=== PATIENT | female | born 1940 | race Caucasian/White ===

== ENCOUNTER 2017-05-03 07:28 | Emergency (ER) | payer MEDICARE, BC ==
[2017-05-03] MEDS ORDERED: Acetaminophen/HYDROcodone 325-5 MG Tab ONE ×2 (08:00→08:46)
[2017-05-03] MEDS ORDERED: Cyclobenzaprine 10 MG Tab ONE (08:00)
[2017-05-03] MEDS ORDERED: methylPREDNISolone 4 MG Tab 21 Tab/Dosepak ONE (08:00)
[2017-05-03 08:06] VITALS: BP 180/80
[2017-05-03] MEDS ORDERED: Ketorolac 60 MG/2 ML SDV ONE (08:17)
[2017-05-03] MEDS ORDERED: predniSONE 20 MG Tab ONE (08:17)
[2017-05-03] MEDS ORDERED: predniSONE 10 MG Tab PO ONE (08:27)
[2017-05-03] MEDS ORDERED: Ketorolac 60 MG/2 ML SDV IM ONE (08:27)
[2017-05-03] MEDS ORDERED: Acetaminophen/HYDROcodone 325-5 MG Tab PO ONE (08:41)
[2017-05-03] MEDS ORDERED: Ondansetron 4 MG Tab.DIS PO ONE (08:42)
[2017-05-03] MEDS ORDERED: Ondansetron 4 MG Tab.DIS ONE (08:45)
--- NOTE | 2017-05-03 09:04 | EDM.PDOC ---
ED HPI GENERAL MEDICAL PROBLEM - General Chief Complaint: General Stated Complaint: PAIN DOWN LEFT LEG Time Seen by Provider: 05/03/17 08:00 Source of Information: Reports: Patient History Limitations: Reports: No Limitations - History of Present Illness Onset: Today, Gradual Duration: Hour(s): (6) Location: Reports: Back, Lower Extremity, Left, Radiates to (Left lower leg from lower back and buttocks area.) Severity: Moderate Improves with: Reports: Medication Worsens with: Reports: Movement Context: Reports: Activity (Increased walking and working with a new puppy.) Treatments METHODS STUDY ANALYST: Reports: Cold Therapy, NSAIDS Left Lower Back Pain Score (Numeric/FACES): 5 - Related Data Allergies Allergy/AdvReac Type Severity Reaction Status Date / Time No Known Allergies Allergy Verified 05/03/17 08:06 Home Meds: Home Meds Benazepril/Hydrochlorothiazide [Lotensin HCT 20-25 MG] 1 tab PO DAILY 09/11/15 [ History] ClonazePAM [KlonoPIN] 1 tab PO ASDIRECTED PRN 09/11/15 [History] Fluticasone Propionate [Flovent] 1 spray INH ASDIRECTED 09/11/15 [History] Mirtazapine 1 tab PO BEDTIME 09/11/15 [History] Venlafaxine HCl [Venlafaxine ER] 3 tab PO DAILY 09/11/15 [History] amLODIPine [Norvasc] 1 tab PO DAILY 09/11/15 [History] atorvaSTATin Calcium [Atorvastatin Calcium] 1 tab PO DAILY 09/11/15 [History] busPIRone [Buspar] 15 mg PO BID 05/03/17 [History] Past Medical History Cardiovascular History: Reports: None Respiratory History: Reports: None Gastrointestinal History: Reports: None Genitourinary History: Reports: None Other OB/BYN History: parity: 3, gravity: 3 Musculoskeletal History: Reports: Arthritis, Back Pain, Chronic, Neck Pain, Chronic, Osteoarthritis Other Musculoskeletal History: neck discomfort at times in walking Oncologic (Cancer) History: Reports: None - Past Surgical History Other Musculoskeletal Surgeries/Procedures:: Back, Hammer Toe Correction Social & Family History - Tobacco Use Smoking Status *Q: Former Smoker Years of Tobacco use: 20 Packs/Tins Daily: 0.3 - Alcohol Use Days Per Week of Alcohol Use: 3 Number of Drinks Per Day: 2 Total Drinks Per Week: 6 - Recreational Drug Use Recreational Drug Use: No ED ROS GENERAL - Review of Systems Review Of Systems: See Below Constitutional: Reports: No Symptoms HEENT: Reports: No Symptoms Respiratory: Reports: No Symptoms Cardiovascular: Reports: No Symptoms Endocrine: Reports: No Symptoms GI/Abdominal: Reports: No Symptoms : Reports: No Symptoms Musculoskeletal: Reports: Leg Pain Skin: Reports: No Symptoms Neurological: Reports: Other (Sciatic pain down left buttocks and leg.) Psychiatric: Reports: No Symptoms Hematologic/Lymphatic: Reports: No Symptoms Immunologic: Reports: No Symptoms ED EXAM, GENERAL - Physical Exam Exam: See Below Exam Limited By: No Limitations General Appearance: Alert Eye Exam: Bilateral Eye: Normal Fundi, Normal Inspection Ears: Normal External Exam, Normal Canal, Hearing Grossly Normal, Normal TMs Ear Exam: Bilateral Ear: Auricle Normal, Canal Normal, TM normal Nose: Normal Inspection, Normal Mucosa, No Blood Throat/Mouth: Normal Inspection, Normal Lips, Normal Teeth, Normal Gums, Normal Oropharynx, Normal Voice, No Airway Compromise Head: Atraumatic, Normocephalic Neck: Normal Inspection, Supple, Non-Tender, Full Range of Motion Respiratory/Chest: No Respiratory Distress, Lungs Clear, Normal Breath Sounds, No Accessory Muscle Use, Chest Non-Tender Cardiovascular: Normal Peripheral Pulses, Regular Rate, Rhythm, No Edema, No Gallop, No JVD, No Murmur, No Rub Peripheral Pulses: 2+: Posterior Tibial (L), Posterior Tibial (R), Dorsalis Pedis (L), Dorsalis Pedis (R) GI/Abdominal: Normal Bowel Sounds, Soft, Non-Tender, No Organomegaly, No Distention, No Abnormal Bruit, No Mass Back Exam: Decreased Range of Motion, Muscle Spasm (Lower back due to buttock and low back pain on the left.) Extremities: Leg Pain (Left buttocks and leg) Neurological: Alert, Abnormal Gait (Antalgic gait due to buttocks pain on the left.) Psychiatric: Normal Affect Skin Exam: Warm, Dry, Intact, Normal Color, No Rash Course - Vital Signs Text/Narrative:: Unremarkable ED course. She felt better with less pain after getting 60 of Toradol, 10 of Flexeril, 60 of Prednisone, one 5-325 [place] and one 4 mg Zofran. She wanted to go home to relax. Last Recorded V/S: Last Vital Signs Temp 35.9 C 05/03/17 07:55 Pulse 112 H 05/03/17 07:55 Resp 22 H 05/03/17 07:55 BP 180/80 H 05/03/17 07:55 Pulse Ox 98 05/03/17 07:55 - Orders/Labs/Meds Orders: Active Orders 24 hr Category Date Time Status Cyclobenzaprine [Flexeril] Med 05/04/17 08:00 Active 10 mg PO DAILY Medication Orders Cyclobenzaprine HCl (Flexeril) 10 mg PO DAILY [place] Meds: Medications Generic Name Dose Route Start Last Admin Trade Name Freq PRN Reason Stop Dose Admin Cyclobenzaprine HCl 10 mg 05/04/17 08:00 Flexeril PO DAILY [place] Discontinued Medications Generic Name Dose Route Start Last Admin Trade Name Freq PRN Reason Stop Dose Admin Hydrocodone Bitart/Acetaminophen 1 tab 05/03/17 08:41 05/03/17 08:44 [place] 325-5 Mg PO 05/03/17 08:42 1 tab ONETIME ONE Administration Hydrocodone Bitart/Acetaminophen Confirm 05/03/17 08:46 [place] 325-5 Mg Administered 05/03/17 08:47 Dose 2 tab .ROUTE .STK-MED ONE Ketorolac Tromethamine Confirm 05/03/17 08:17 Toradol Administered 05/03/17 08:18 Dose 60 mg .ROUTE .STK-MED ONE Ketorolac Tromethamine 60 mg 05/03/17 08:27 05/03/17 08:29 Toradol IM 05/03/17 08:28 60 mg ONETIME ONE Administration Ondansetron HCl 4 mg 05/03/17 08:42 05/03/17 08:45 Zofran Odt PO 05/03/17 08:43 4 mg ONETIME ONE Administration Ondansetron HCl Confirm 05/03/17 08:45 Zofran Odt Administered 05/03/17 08:46 Dose 4 mg .ROUTE .STK-MED ONE Prednisone Confirm 05/03/17 08:17 Prednisone Administered 05/03/17 08:18 Dose 60 mg .ROUTE .STK-MED ONE Prednisone 60 mg 05/03/17 08:27 05/03/17 08:29 Prednisone PO 05/03/17 08:28 60 mg ONETIME ONE Administration Departure - Departure Time of Disposition: 09:06 Disposition: Home, Self-Care 01 Condition: Good Clinical Impression: Sciatic leg pain - Discharge Information Instructions: Back Pain, Adult, Heat Therapy, Cryotherapy Referrals: PCP,None [Primary Care Provider] - Forms: ED Department Discharge Additional Instructions: You can take the flexeril as needed three times a day. If you are still having pain in the next couple days follow up in the clinic, if the pain gets worse return the the ER. Call [phone] if you have any questions concerns about your visit. Call [phone] for an appt in the clinic. - My Orders Last 24 Hours: My Active Orders 05/04/17 08:00 Cyclobenzaprine [Flexeril] 10 mg PO DAILY - Assessment/Plan Last 24 Hours: My Active Orders 05/04/17 08:00 Cyclobenzaprine [Flexeril] 10 mg PO DAILY Plan: Will have her take Ibuprofen 800 mg po q 6 hours, Flexeril 10 mg po tid prn, [place] 5-325 mg po q 4hours, Medrol dose heather and follow up with PCP this week if not getting better or come back to ED for further evaluation. I had offered imaging and labs but she does not want today but would possibly do them with her PCP.
[2017-05-04] MEDS ORDERED: Cyclobenzaprine 10 MG Tab PO SCH (08:00)
== END 2017-05-03 09:07 | disposition home or self-care (01) ==
LOC: LB.ED 07:28
DX: M79.605 Pain in left leg (principal); M54.32 Sciatica, left side; Z79.899 Other long term (current) drug therapy; G89.29 Other chronic pain; M54.9 Dorsalgia, unspecified; F17.210 Nicotine dependence, cigarettes, uncomplicated
CPT/HCPCS: 99283; A9270; J1885

== ENCOUNTER 2019-05-21 16:14 | Inpatient (IN) | payer MEDICARE ==
[2019-05-21] MEDS ORDERED: HYDROmorphone 2 MG/ML Syringe IVPUSH ONE (16:50)
[2019-05-21] MEDS ORDERED: Ondansetron 4 MG/2 ML SDV IVPUSH ONE (16:50)
[2019-05-21] MEDS ORDERED: HYDROmorphone 2 MG/ML SDV ONE ×2 (17:08→19:33)
[2019-05-21] MEDS ORDERED: Sodium Chloride 0.9% 1,000 ML IV SCH (18:00)
[2019-05-21] MEDS ORDERED: Prochlorperazine 10 MG in Sodium Chloride 0.9% 50 ML IV ONE (18:34)
[2019-05-21] MEDS: HYDROmorphone 2 MG/ML Syringe IVPUSH PRN (19:39)
[2019-05-21] MEDS: Sodium Chloride 0.9% 1,000 ML IV SCH (19:44)
[2019-05-22] MEDS: Sodium Chloride 0.9% 1,000 ML IV SCH ×2 (00:47→07:04)
[2019-05-22] MEDS: HYDROmorphone 2 MG/ML Syringe IVPUSH PRN ×6 (00:55→23:40)
--- NOTE | 2019-05-22 02:13 | HP ---
ADMISSION HISTORY AND PHYSICAL, AND EMERGENCY ROOM VISIT. REASON FOR ADMISSION: Nausea, vomiting, and dehydration. HISTORY: This 79-year-old woman comes into the emergency department with at least a 1- week's history of intractable nausea and vomiting, and abdominal distention. Her history goes back for approximately 4 weeks when she began to notice some abdominal swelling and a gradual onset of dyspnea initially with exertion and subsequently even at rest. Because of these symptoms, a friend of hers brought her in to see Dr. Rose here in [place]. He did an initial physical exam and some blood work, and a CT scan and ultrasound were performed. I do not have access to those results; however, I am told that the CT scan did show some sign of a pelvic tumor, possibly with ascites and an ultrasound confirmed this. Her liver enzymes were slightly elevated and a CA-125 antigen was also elevated. Because of these findings and the suspicion of a possible pelvic tumor, possibly ovarian in origin, she was sent to [facility] in [place], and this was approximately 8 days ago. She did have an appointment to see Dr. Villarreal in [place], but she missed this because she went to the ER at around the same time she had an appointment, and this was done because she had vomiting that had become increasingly intolerable. She was admitted to the hospital and ultrasound supposedly showed some loculated fluid in the pelvis consistent with ascites, and a CT scan confirmed the above-mentioned findings of a possible pelvic tumor with some possible carcinomatosis. She was admitted on the Thursday and discharged last Thursday, and has an appointment set up to see someone from [facility] at the [facility] on Thursday. For the past week she has had increasing nausea and vomiting, although she has tried to eats certain foods, some of which agree with her, others don't. She has continued to have bowel movements that are somewhat loose up until as recently as yesterday. She has developed some progressive weakness as a result of her vomiting and poor appetite. 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 Up until now she has not yet had a paracentesis or any tissue diagnosis, presumably the assumption was that this would get accomplished when she goes to see [facility] at the [facility] on Thursday (4 days from today). At the present time, she states that she feels quite weak. Her appetite is nonexistent and she has persistent nausea as well as abdominal pain from the progressive distention. It should be noted that the patient did have a negative colonoscopy approximately 1-1/2 years ago. PAST MEDICAL HISTORY: Her past medical history is significant for the followin. Hypertension. 2. Depression. 3. Hypercholesterolemia. 4. Right hip prosthesis. 5. Surgery for hammertoe. MEDICATIONS: Reviewed. Please see electronic medical record. They include the followin. Trazodone. 2. Buspirone. 3. Atorvastatin. 4. Amlodipine. 5. Venlafaxine (Effexor). 6. Mirtazapine. 7. Vitamins and supplements. 8. Lotensin and hydrochlorothiazide. 9. Aspirin. ALLERGIES: TO GABAPENTIN (CAUSES LEG SWELLING). FAMILY HISTORY: Her mother from Alzheimer's. Her father from CVA. She has 1 brother who is alive and in reasonably good health. She has 3 children, who are alive and well. REVIEW OF SYSTEMS: All pertinent positives and negatives as listed in the HPI. PHYSICAL EXAMINATION: GENERAL: She is a pleasant woman who looks somewhat pale, but in no acute distress. She is oriented x3 and answers questions appropriately. Generally just playing surprisingly jocular personality. VITAL SIGNS: She is afebrile. Blood pressure 116/83, pulse of 102, respirations 24, and O2 sats 96%. HEENT: Head is normocephalic. There is no scleral icterus. Oral mucosa appears somewhat dry. She looks slightly pale. NECK: Supple. No adenopathy. There is no JVD. CHEST: Clear to auscultation. I do not hear any wheezes, rhonchi, or rales. Breath sounds are equal bilaterally. CARDIAC EXAMINATION: Regular rate without murmur. ABDOMEN: Grossly distended. She does have bowel sounds and some of these are high-pitched. She has tympany across her abdomen to percussion. Some dullness in her flanks is noted, although this is not shifting dullness when I repositioned her and reexamined her. Her abdomen is nonetheless soft and nontender. I cannot palpate any definite masses. RECTAL EXAMINATION: Her rectal examination was done showing a small amount of soft brown stool in the rectal vault. I cannot feel any tumor up above. EXTREMITIES: No edema. Normal pulses. No deformities. SKIN: No rashes. NEUROLOGIC: Cranial nerves 2 through 12 appear intact. She moves all 4 extremities to command. Muscle strength is equal bilaterally in the upper and lower extremities. LABORATORY DATA: CBC shows that her white count is elevated at 13,300. Her hemoglobin is 13.3 g. Her differential show some minor abnormalities. CMP demonstrates that she has a sodium of 134 and a potassium of 5.0. She has a CO2 content of 14.4 with an anion gap of 22. A lactate is pending at this time. Her serum creatinine is 1.72 with an estimated GFR of 28. Her AST is minimally elevated at 51 and an alkaline phosphatase is elevated at 121. Her albumin is normal. Urine is pending. Chest x-ray to mi shows some atelectasis in the left base with an effusion present. Flat and upright films of her abdomen demonstrate some scattered dilated bowel gas particularly in the colon, but she has gas in her small bowel as well. Upright films suggest only a couple of small air-fluid levels in the right upper quadrant. IMPRESSION: 1. Nausea and vomiting with dehydration. 2. Metabolic acidosis secondary to dehydration. 3. 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 4. Other diagnoses as listed above (hypertension, depression, and hypercholesterolemia). PLAN: After carefully reviewing her history and her labs and examining her, I feel that her main problem at this point is pain control as well as control of nausea and dehydration. She was given 1 L of IV normal saline while in the emergency room. I felt that the sensible approach would be to admit her, keep her comfortable and try to control her nausea pharmacologically and rehydrate her and reassess in the morning. I do not think it is imperative that she be transferred or sent out at this point in time, but I discussed with the patient and her son as well as her friend who accompanied her. They agree with this plan. All questions were answered. NAVEEN
[2019-05-22] MEDS ORDERED: HYDROmorphone 2 MG/ML SDV ONE ×3 (06:59→23:31)
[2019-05-22] MEDS: Venlafaxine 150 MG Cap.ER PO SCH (07:46)
[2019-05-22] MEDS: Venlafaxine 75 MG Cap.ER PO SCH (07:46)
[2019-05-22] MEDS ORDERED: Venlafaxine 150 MG Cap.ER PO SCH ×2 (08:00)
[2019-05-22] MEDS ORDERED: Sodium Chloride 0.9% 500 ML IV ONE (09:34)
[2019-05-22] MEDS: Sulfamethoxazole/Trimethoprim 800-160 MG Tab PO SCH ×2 (10:14→20:03)
[2019-05-22] MEDS ORDERED: Sodium Chloride 0.9% 1,000 ML IV SCH (10:15)
--- NOTE | 2019-05-23 05:20 | CR ---
DATE OF SERVICE: 05/21/19 CLINICAL DATA: Dyspnea, nausea and vomiting. PA AND LATERAL CHEST: No priors. There is infiltrate and dense consolidation in the left lung base. Pneumonia is suspected. Metastatic disease within the left lung base cannot be excluded. The right lung is clear. The heart size is normal. There is gas throughout the transverse colon. [id number] MTDD
--- NOTE | 2019-05-23 05:24 | CR ---
DATE OF SERVICE: 05/21/19 CLINICAL DATA: Nausea and vomiting. Poss metastatic cancer. SUPINE AND UPRIGHT ABDOMEN: There is a moderate amount of gas and stool present throughout the colon. No definite evidence for obstruction or ileus. No free air. The patient is status post right hip arthroplasty. [id number] MTDD
[2019-05-23] MEDS: Ondansetron 4 MG/2 ML SDV IVPUSH PRN ×2 (06:12→07:19)
[2019-05-23] MEDS: Furosemide 20 MG/2 ML VIAL IVPUSH ONE ×2 (06:40→06:56)
[2019-05-23] MEDS: amLODIPine 5 MG Tab PO SCH (07:37)
[2019-05-23] MEDS: Sulfamethoxazole/Trimethoprim 800-160 MG Tab PO SCH ×2 (07:37→19:45)
[2019-05-23] MEDS: Venlafaxine 75 MG Cap.ER PO SCH (07:37)
[2019-05-23] MEDS: Aspirin 81 MG Tab.Chew PO SCH (07:37)
[2019-05-23] MEDS: Venlafaxine 150 MG Cap.ER PO SCH (07:38)
--- NOTE | 2019-05-23 07:54 | PN ---
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 Her history leading up to this was as outlined in her H and P. She came in yesterday, dehydrated with considerable nausea and intractable vomiting. Her labs reflect dehydration, I suspect due to the prolonged vomiting over the week. She had a metabolic acidosis and a creatinine of 1.77, but her electrolytes are reasonably good. Her CO2 content was 14. Her WBCs were mildly elevated at 13,300. She was afebrile on admission. Overnight, she was initially hydrated with 1 L of normal saline while in the emergency room and hydrated with normal saline at 150 mL/h. Overnight, her nausea subsided with antiemetic medications, and her pain was controlled with Dilaudid. This morning, she feels much better. Her nausea and vomiting are no longer problematic. She has tolerated some clear liquids last night and this morning with no further episodes of nausea. She has been passing flatus, but no bowel movement since admission. She still complains of pain that is in a band-like fashion across her upper abdomen, which is consistent with what she has been having. Overall, she feels 100% better. OBJECTIVE: VITAL SIGNS: She is afebrile. Her blood pressure is 99/59, heart rate 83, O2 sats 93% on room air. CHEST: Clear to auscultation. She has no rales. CARDIAC: Regular rate without murmur. ABDOMEN: Distended and tympanitic as before, but it is soft and nontender. LABORATORY DATA: Labs show improvement. Her WBCs have gone from 13,300 to 11,700. Her CO2 content is improved, going from 14.4 to 16.6. Her electrolytes remain normal. Her creatinine is decreased from 1.77 to 1.52. Her urinalysis from yesterday did show 75 to 100 wbc's per high-power field, and she does have nitrites and leukocyte esterase with a few bacteria. IMPRESSION: Overall, improved. Hydration status improved, although she is still dry, and she has only voided 100 mL overnight. It is possible that she has a cystitis, and I think we will go ahead and treat that with Bactrim DS for 3 days. I think we will go ahead and advance her diet and see how she does. We will cut back on her IV fluids and recheck her CMP in the morning. I will be leaving in the morning. The patient knows this, and I will leave her in Dr. Walker's care. NAVEEN /[id number]
[2019-05-23] MEDS ORDERED: Metoclopramide 10 MG/2 ML SDV IVPUSH ONE (08:16)
[2019-05-23] MEDS ORDERED: busPIRone 10 MG Tab ONE ×2 (08:35→08:55)
[2019-05-23] MEDS: Hydrochlorothiazide 25 MG Tab PO SCH (08:45)
[2019-05-23] MEDS: busPIRone 15 MG Tab PO SCH (08:46)
[2019-05-23] MEDS: Omeprazole 20 MG Cap.CR PO SCH (08:48)
[2019-05-23] MEDS: Benazepril 10 MG Tab PO SCH (09:42)
--- NOTE | 2019-05-23 10:03 | PN ---
DATE OF VISIT: SUBJECTIVE: Miriam continues to be without any nausea or vomiting today and throughout the day yesterday. She tolerated the general diet. Towards the end of the day, the nursing staff noted that she had some more exertional dyspnea and a few scattered wheezes were noted on exam. She still has not had a bowel movement, but she has passed quite a bit of gas. Her O2 sats have ranged between 93 and 88 with 88 being most recent one this morning, but she was down to 90 yesterday around noon and then came back up to 93 in midday. Her blood pressure was in the high 90s yesterday, but she has been creeping up to the point where her last blood pressure was 157/79. She remains afebrile. Her heart rate has been in the 80s and low 90s. Her respiratory rate has ranged between 16 and 20. Her urine output has increased considerably, particularly later on yesterday and her IV was placed at [facility]. This morning, nursing staff noticed that she had some more dyspnea and a few wheezes were noted again with O2 sats in the 80s. I was notified in and gave her 20 mg of Lasix. OBJECTIVE: VITAL SIGNS: She is alert and pleasant. She does say that she is a bit more short of breath. She is afebrile. O2 sats 88%. Blood pressure 157/79. CHEST : She does have scattered expiratory wheezes but no rales. Her exam is not greatly changed from yesterday. ABDOMEN: Remains the same. Quite distended. It is not tender at this time. LABORATORY DATA: Lab is pending and we will see the status of her electrolytes and CBC. I have ordered a chest x-ray on her this morning. It is quite probable that she is now has some fluid overload, and simply backing off our hydration yesterday wasn't adequate, so careful diuresis is now necessary. I have started all of her home medications and will ask Dr. Walker to assume care for her as I am leaving town this morning. The patient has been made aware of this. NAVEEN /[id number] RENU
[2019-05-23] MEDS ORDERED: HYDROmorphone 2 MG/ML SDV ONE ×3 (10:17→22:32)
[2019-05-23] MEDS: HYDROmorphone 2 MG/ML Syringe IVPUSH PRN ×5 (10:20→22:37)
--- NOTE | 2019-05-23 11:16 | CR ---
DATE OF SERVICE: 05/23/19 CLINICAL DATA: dyspnea, metastatic ca, ascites PA AND LATERAL CHEST: Comparison made to a prior exam dated 05/21/19. There is progressive infiltrate and consolidation in the left lower lung. There is a persistent left pleural effusion that is unchanged. There are atelectatic changes in the right lung base. The exam is otherwise unchanged. Continued followup is recommended. [id number] [facility]
[2019-05-23] MEDS ORDERED: Promethazine 12.5 MG in Sodium Chloride 0.9% 50 ML IV PRN (13:17)
[2019-05-23] MEDS ORDERED: Promethazine 25 MG/ML SDV ONE (13:20)
[2019-05-23] MEDS: Mirtazapine 15 MG Tab PO SCH (19:45)
[2019-05-23] MEDS: atorvaSTATin 80 MG Tab PO SCH (19:45)
[2019-05-23] MEDS: traZODone 100 MG Tab PO SCH (19:47)
[2019-05-23] MEDS ORDERED: Albuterol/Ipratropium 3.0-0.5 MG/3 ML Neb Soln ONE (19:56)
[2019-05-23] MEDS: Albuterol/Ipratropium 3.0-0.5 MG/3 ML Neb Soln NEB PRN (20:00)
[2019-05-24] MEDS: Albuterol/Ipratropium 3.0-0.5 MG/3 ML Neb Soln NEB PRN ×4 (00:27→21:08)
[2019-05-24] MEDS ORDERED: HYDROmorphone 2 MG/ML SDV ONE ×3 (04:29→19:32)
[2019-05-24] MEDS: HYDROmorphone 2 MG/ML Syringe IVPUSH PRN ×6 (04:34→19:46)
[2019-05-24] MEDS ORDERED: busPIRone 10 MG Tab ONE (07:34)
[2019-05-24] MEDS: Aspirin 81 MG Tab.Chew PO SCH (08:15)
[2019-05-24] MEDS: busPIRone 15 MG Tab PO SCH (08:16)
[2019-05-24] MEDS: Venlafaxine 150 MG Cap.ER PO SCH (08:17)
[2019-05-24] MEDS: Venlafaxine 75 MG Cap.ER PO SCH (08:18)
[2019-05-24] MEDS: Hydrochlorothiazide 25 MG Tab PO SCH (08:18)
[2019-05-24] MEDS: Benazepril 10 MG Tab PO SCH (08:19)
[2019-05-24] MEDS: Omeprazole 20 MG Cap.CR PO SCH (08:20)
[2019-05-24] MEDS: amLODIPine 5 MG Tab PO SCH (08:20)
[2019-05-24] MEDS: Sulfamethoxazole/Trimethoprim 800-160 MG Tab PO SCH ×2 (08:21→19:48)
[2019-05-24] MEDS: Sodium Chloride 0.9% 1,000 ML IV SCH ×2 (10:02→22:45)
--- NOTE | 2019-05-24 11:03 | PCM.PN ---
- General Info Date of Service: 05/24/19 Subjective Update: This is a 79yo F here for management of here nausea, vomiting, dehydration, and acute renal dysfunction. She has hypoxia, dyspnea and has been placed on oxygen to maintain her sats. 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 She has been requiring oxygen during her stay. Today her symptoms have improved somewhat and she states she has been able to drink a little. - Review of Systems General: Reports: Weakness HEENT: Reports: No Symptoms Pulmonary: Reports: Shortness of Breath Cardiovascular: Reports: No Symptoms Gastrointestinal: Reports: No Symptoms Genitourinary: Reports: No Symptoms Musculoskeletal: Reports: No Symptoms Skin: Reports: No Symptoms Neurological: Reports: No Symptoms - Patient Data Vitals - Most Recent: Last Vital Signs Temp 36.9 C 05/24/19 08:00 Pulse 95 05/24/19 08:00 Resp 22 H 05/24/19 08:00 BP 143/83 H 05/24/19 08:20 Pulse Ox 92 L 05/24/19 08:00 Weight - Most Recent: 73.992 kg I&O - Last 24 Hours: Intake & Output 05/23/19 05/24/19 05/24/19 22:59 06:59 14:59 Intake Total 350 300 Output Total 1775 250 Balance -1425 50 Lab Results Last 24 Hours: Laboratory Results - last 24 hr 05/24/19 05/24/19 Range/Units 07:20 07:20 WBC 11.2 H (4.0-11.0) K/uL RBC 3.93 (3.80-5.80) M/uL Hgb 11.8 (11.5-16.5) g/dL Hct 37.4 (37.0-47.0) % MCV 95 (76-96) fL MCH 30.0 (27.0-32.0) pg MCHC 31.6 (31.0-35.0) g/dL RDW 15.4 (11.0-16.0) % Plt Count 504 H (150-500) K/uL MPV 9.2 (6.0-10.0) fL Neut % (Auto) 75.2 H (45.0-70.0) % Lymph % (Auto) 12.4 L (20.0-40.0) % [place] % (Auto) 9.8 (3.0-10.0) % Eos % (Auto) 2.4 (1.0-5.0) % Baso % (Auto) 0.2 (0.0-0.5) % Neut # (Auto) 8.40 H (2.00-7.50) K/uL Lymph # (Auto) 1.39 L (1.50-4.00) K/uL [place] # (Auto) 1.10 H (0.20-0.80) K/uL Eos # (Auto) 0.27 (0.04-0.40) K/uL Baso # (Auto) 0.02 (0.02-0.10) K/uL Sodium 134 L (136-145) mmol/L Potassium 5.6 H (3.5-5.1) mmol/L Chloride 102 (98-107) mmol/L Carbon Dioxide 20.5 L (21.0-32.0) mmol/L Anion Gap 17.1 H (5.0-15.0) mmol/L BUN 24 (8-26) mg/dL Creatinine 1.27 H D (0.55-1.02) mg/dL Est Cr Clr Drug Dosing 30.69 mL/min Estimated GFR (MDRD) 41 L (>60) MLS/MIN BUN/Creatinine Ratio 18.9 (6-25) Glucose 102 H (74-100) mg/dL Calcium 8.2 L (8.5-10.1) mg/dL Total Bilirubin 0.1 D (0.0-1.0) mg/dL AST 42 H (15-37) U/L ALT 16 (12-78) U/L Alkaline Phosphatase 104 (46-116) U/L Total Protein 6.1 L (6.4-8.2) g/dL Albumin 2.3 L (3.4-5.0) g/dL Globulin 3.8 (2.2-4.2) g/dL Albumin/Globulin Ratio 0.6 L (0.8-2.0) Sharif Results Last 24 Hours: Microbiology 05/21/19 08:30 MRSA Surveillance Culture - Final Nasal, Unspecified NO MRSA ISOLATED Med Orders - Current: Current Medications Albuterol/Ipratropium (Duoneb 3.0-0.5 Mg/3 Ml) 3 ml NEB Q4H PRN PRN Reason: Shortness of Breath Last Admin: 05/24/19 08:13 Dose: 3 ml Amlodipine Besylate (Norvasc) 5 mg PO DAILY [facility] Last Admin: 05/24/19 08:20 Dose: 5 mg Aspirin (Aspirin) 81 mg PO DAILY [facility] Last Admin: 05/24/19 08:15 Dose: 81 mg Atorvastatin Calcium (Lipitor) 80 mg PO BEDTIME [facility] Last Admin: 05/23/19 19:45 Dose: 80 mg Benazepril HCl (Lotensin) 20 mg PO DAILY [facility] Last Admin: 05/24/19 08:19 Dose: 20 mg Buspirone HCl (Buspar) 30 mg PO DAILY [facility] Last Admin: 05/24/19 08:16 Dose: 30 mg Hydrochlorothiazide (Hydrochlorothiazide) 25 mg PO DAILY [facility] Last Admin: 05/24/19 08:18 Dose: 25 mg Hydromorphone HCl (Dilaudid) 1 mg IVPUSH Q2H PRN PRN Reason: Abdominal Pain Last Admin: 05/24/19 10:38 Dose: 1 mg Promethazine HCl 12.5 mg/ (Sodium Chloride) 50.5 mls @ 200 mls/hr IV Q6H PRN PRN Reason: Nausea/Vomiting Last Admin: 05/23/19 13:36 Dose: 200 mls/hr Sodium Chloride (Normal Saline) 1,000 mls @ 75 mls/hr IV ASDIRECTED [facility] Last Admin: 05/24/19 10:02 Dose: 75 mls/hr Mirtazapine (Remeron) 45 mg PO BEDTIME [facility] Last Admin: 05/23/19 19:45 Dose: 45 mg Omeprazole (Omeprazole) 40 mg PO DAILY [facility] Last Admin: 05/24/19 08:20 Dose: 40 mg Ondansetron HCl (Zofran) 4 mg IVPUSH Q4H PRN PRN Reason: Nausea Last Admin: 05/23/19 07:19 Dose: 4 mg Senna/Docusate Sodium (Senna Plus) 1 tab PO BEDTIME PRN PRN Reason: Constipation Last Admin: 05/23/19 19:49 Dose: 1 tab Trazodone HCl (Trazodone) 100 mg PO BEDTIME [facility] Last Admin: 05/23/19 19:47 Dose: 100 mg Trimethoprim/Sulfamethoxazole (Septra Ds) 1 tab PO BID [facility] Last Admin: 05/24/19 08:21 Dose: 1 tab Venlafaxine HCl (Effexor Xr) 150 mg PO DAILY [facility] Last Admin: 05/24/19 08:17 Dose: 150 mg Venlafaxine HCl (Effexor Xr) 75 mg PO DAILY [facility] Last Admin: 05/24/19 08:18 Dose: 75 mg Discontinued Medications Albuterol/Ipratropium (Duoneb 3.0-0.5 Mg/3 Ml) Confirm Administered Dose 3 ml .ROUTE .STK-MED ONE Stop: 05/23/19 19:57 Last Admin: 05/23/19 20:54 Dose: Not Given Buspirone HCl (Buspar) Confirm Administered Dose 20 mg .ROUTE .STK-MED ONE Stop: 05/23/19 08:36 Last Admin: 05/23/19 19:00 Dose: Not Given Buspirone HCl (Buspar) Confirm Administered Dose 10 mg .ROUTE .STK-MED ONE Stop: 05/23/19 08:56 Last Admin: 05/23/19 19:00 Dose: Not Given Buspirone HCl (Buspar) Confirm Administered Dose 30 mg .ROUTE .STK-MED ONE Stop: 05/24/19 07:35 Last Admin: 05/24/19 08:15 Dose: Not Given Furosemide (Lasix) 20 mg IVPUSH ONETIME ONE Stop: 05/23/19 06:07 Last Admin: 05/23/19 06:56 Dose: 20 mg Hydromorphone HCl (Dilaudid) Confirm Administered Dose 2 mg .ROUTE .STK-MED ONE Stop: 05/21/19 17:09 Last Admin: 05/21/19 18:04 Dose: Not Given Hydromorphone HCl (Dilaudid) 1 mg IVPUSH ONETIME ONE Stop: 05/21/19 16:51 Last Admin: 05/21/19 17:06 Dose: 1 mg Hydromorphone HCl (Dilaudid) Confirm Administered Dose 2 mg .ROUTE .STK-MED ONE Stop: 05/21/19 19:34 Last Admin: 05/21/19 19:39 Dose: Not Given Hydromorphone HCl (Dilaudid) Confirm Administered Dose 2 mg .ROUTE .STK-MED ONE Stop: 05/22/19 07:00 Last Admin: 05/22/19 07:14 Dose: Not Given Hydromorphone HCl (Dilaudid) Confirm Administered Dose 2 mg .ROUTE .[facility] ONE Stop: 05/22/19 14:24 Last Admin: 05/22/19 14:28 Dose: Not Given Hydromorphone HCl (Dilaudid) Confirm Administered Dose 2 mg .ROUTE .[facility] ONE Stop: 05/22/19 23:32 Last Admin: 05/22/19 23:39 Dose: Not Given Hydromorphone HCl (Dilaudid) Confirm Administered Dose 2 mg .ROUTE .[facility] ONE Stop: 05/23/19 10:18 Last Admin: 05/23/19 19:01 Dose: Not Given Hydromorphone HCl (Dilaudid) Confirm Administered Dose 2 mg .ROUTE .[facility] ONE Stop: 05/23/19 20:45 Last Admin: 05/23/19 20:54 Dose: Not Given Hydromorphone HCl (Dilaudid) Confirm Administered Dose 2 mg .ROUTE .[facility] ONE Stop: 05/23/19 22:33 Last Admin: 05/24/19 00:00 Dose: Not Given Hydromorphone HCl (Dilaudid) Confirm Administered Dose 2 mg .ROUTE .[facility] ONE Stop: 05/24/19 04:30 Last Admin: 05/24/19 06:32 Dose: Not Given Hydromorphone HCl (Dilaudid) Confirm Administered Dose 2 mg .ROUTE .[facility] ONE Stop: 05/24/19 08:35 Last Admin: 05/24/19 08:37 Dose: Not Given Sodium Chloride (Normal Saline) 1,000 mls @ 500 mls/hr IV ASDIRECTED [facility] Last Admin: 05/21/19 18:00 Dose: 500 mls/hr Prochlorperazine Edisylate 10 (mg/ Sodium Chloride) 52 mls @ 150 mls/hr IV ONETIME ONE Stop: 05/21/19 18:54 Last Admin: 05/21/19 19:09 Dose: 150 mls/hr Sodium Chloride (Normal Saline) 1,000 mls @ 150 mls/hr IV ASDIRECTED [facility] Last Admin: 05/22/19 07:04 Dose: 150 mls/hr Sodium Chloride (Normal Saline) 500 mls @ 500 mls/hr IV .[facility] ONE Stop: 05/22/19 10:33 Last Admin: 05/22/19 10:00 Dose: 500 mls/hr Sodium Chloride (Normal Saline) 1,000 mls @ 50 mls/hr IV ASDIRECTED [place] Last Infusion: 05/22/19 18:55 Dose: 50 mls/hr Metoclopramide HCl (Reglan) 10 mg IVPUSH ONETIME ONE Stop: 05/23/19 08:17 Last Admin: 05/23/19 08:50 Dose: 10 mg Ondansetron HCl (Zofran) 4 mg IVPUSH ONETIME ONE Stop: 05/21/19 16:51 Last Admin: 05/21/19 16:53 Dose: 4 mg Promethazine HCl (Phenergan) Confirm Administered Dose 25 mg .ROUTE .STK-MED ONE Stop: 05/23/19 13:21 Last Admin: 05/23/19 19:01 Dose: Not Given Venlafaxine HCl (Effexor Xr) 75 mg PO DAILY [place] - Exam Quality Assessment: Supplemental Oxygen General: Alert, Oriented, Cooperative HEENT: Pupils Equal, Pupils Reactive, EOMI Neck: Supple Lungs: Decreased Breath Sounds, Rales, Rhonchi Cardiovascular: Regular Rate, Regular Rhythm GI/Abdominal Exam: Normal Bowel Sounds, Soft, Non-Tender Back Exam: Normal Inspection Extremities: Normal Inspection Peripheral Pulses: 2+: Dorsalis Pedis (L), Dorsalis Pedis (R) Skin: Warm, Dry, Intact Neurological: No New Focal Deficit Psy/Mental Status: Alert, Normal Affect, Normal Mood - Problem List & Annotations (1) Lung mass SNOMED Code(s): 463496650 Code(s): R91.8 - OTHER NONSPECIFIC ABNORMAL FINDING OF LUNG FIELD Status: Acute Current Visit: Yes (2) Dyspnea SNOMED Code(s): 299747210 Code(s): R06.00 - DYSPNEA, UNSPECIFIED Status: Acute Current Visit: Yes (3) Palliative care patient SNOMED Code(s): 312074197 Code(s): Z51.5 - ENCOUNTER FOR PALLIATIVE CARE Status: Acute Current Visit: Yes (4) Nausea & vomiting SNOMED Code(s): 89987758 Code(s): R11.2 - NAUSEA WITH VOMITING, UNSPECIFIED Status: Acute Current Visit: Yes (5) Renal dysfunction Status: Acute Current Visit: Yes - Problem List Review Problem List Initiated/Reviewed/Updated: Yes - My Orders Last 24 Hours: My Active Orders 05/23/19 13:17 Promethazine [Phenergan] 12.5 mg Sodium Chloride 0.9% [Normal Saline] 50 ml IV Q6H 05/23/19 13:46 Docusate Sodium/Sennosides [Senna Plus] 1 tab PO BEDTIME PRN 05/23/19 19:55 RT Aerosol Therapy [RC] ASDIRECTED Albuterol/Ipratropium [DuoNeb 3.0-0.5 MG/3 ML] 3 ml NEB Q4H PRN 05/24/19 08:45 Sodium Chloride 0.9% [Normal Saline] 1,000 ml IV ASDIRECTED 05/25/19 05:11 CBC WITH AUTO DIFF [HEME] AM COMPREHENSIVE METABOLIC PN,CMP [CHEM] AM 05/26/19 05:11 CBC WITH AUTO DIFF [HEME] AM COMPREHENSIVE METABOLIC PN,CMP [CHEM] AM - Plan Plan:: Patient plan for discharge tomorrow in the am. She will be travelling with her son to [place] to see the specialist for further management and diagnoses. She is in stable chronic condition for transfer by private vehicle to see the specialist on discharge. She will require 24 hour oxygen to maintain her saturation and improve her mobility and dyspnea. We suspect a metastatic carcinoma that has progressed to the lungs.
[2019-05-24] MEDS: Ondansetron 4 MG/2 ML SDV IVPUSH PRN ×3 (13:28→21:07)
[2019-05-24] MEDS: atorvaSTATin 80 MG Tab PO SCH (19:48)
[2019-05-24] MEDS: Mirtazapine 15 MG Tab PO SCH (21:05)
[2019-05-24] MEDS: traZODone 100 MG Tab PO SCH (21:06)
[2019-05-25] MEDS: HYDROmorphone 2 MG/ML Syringe IVPUSH PRN ×2 (02:21→06:38)
[2019-05-25 06:14] VITALS: PULSE 102
[2019-05-25] MEDS ORDERED: HYDROmorphone 2 MG/ML SDV ONE (06:25)
[2019-05-25] MEDS ORDERED: Omeprazole 20 MG Cap.CR ONE (06:29)
[2019-05-25] MEDS: Ondansetron 4 MG/2 ML SDV IVPUSH PRN (06:33)
[2019-05-25] MEDS: Aspirin 81 MG Tab.Chew PO SCH (06:42)
[2019-05-25] MEDS: Venlafaxine 75 MG Cap.ER PO SCH ×2 (06:44→06:49)
[2019-05-25] MEDS: Venlafaxine 150 MG Cap.ER PO SCH (06:45)
[2019-05-25] MEDS: Benazepril 10 MG Tab PO SCH (06:45)
[2019-05-25] MEDS: busPIRone 15 MG Tab PO SCH (06:45)
[2019-05-25] MEDS: Hydrochlorothiazide 25 MG Tab PO SCH (06:45)
[2019-05-25] MEDS: amLODIPine 5 MG Tab PO SCH (06:46)
[2019-05-25] MEDS: Omeprazole 20 MG Cap.CR PO SCH (06:47)
[2019-05-25] MEDS: Sulfamethoxazole/Trimethoprim 800-160 MG Tab PO SCH (06:47)
[2019-05-25 06:53] VITALS: BP 163/82
[2019-05-25] MEDS: Albuterol/Ipratropium 3.0-0.5 MG/3 ML Neb Soln NEB PRN (06:53)
--- NOTE | 2019-05-25 14:21 | PCM.DCSUM1 ---
Discharge Summary - Discharge Data Discharge Date: 05/25/19 Discharge Disposition: DC/Tfer to Other 70 Condition: Poor - Discharge Diagnosis/Problem(s) (1) Lung mass SNOMED Code(s): 147617592 ICD Code: R91.8 - OTHER NONSPECIFIC ABNORMAL FINDING OF LUNG FIELD Status: Acute (2) Dyspnea SNOMED Code(s): 318205384 ICD Code: R06.00 - DYSPNEA, UNSPECIFIED Status: Acute (3) Palliative care patient SNOMED Code(s): 844666510 ICD Code: Z51.5 - ENCOUNTER FOR PALLIATIVE CARE Status: Acute (4) Nausea & vomiting SNOMED Code(s): 96295995 ICD Code: R11.2 - NAUSEA WITH VOMITING, UNSPECIFIED Status: Acute (5) Renal dysfunction Status: Acute - Patient Instructions Diet: Regular Diet as Tolerated Driving: Do Not Drive Showering/Bathing: May Shower - Discharge Plan Prescriptions/Med Rec: oxyCODONE HCl [Oxycodone HCl] 10 mg PO Q4HR PRN #35 tablet PRN Reason: Pain Ondansetron [Ondansetron ODT] 4 mg PO Q6H PRN #30 tab.rapdis PRN Reason: Nausea Home Medications: Home Meds Mirtazapine 45 mg PO BEDTIME 09/11/15 [History] amLODIPine [Norvasc] 5 mg PO DAILY 09/11/15 [History] atorvaSTATin Calcium [Atorvastatin Calcium] 1 tab PO QPM 09/11/15 [History] busPIRone [Buspar] 30 mg PO DAILY 05/03/17 [History] Aspirin 81 mg PO DAILY 09/23/18 [History] Benazepril/Hydrochlorothiazide [Lotensin Hct 20-25 mg Tablet] 1 each PO DAILY [History] traZODone 100 mg PO BEDTIME 09/23/18 [History] Bisacodyl [Dulcolax] 10 mg RC DAILY PRN 05/21/19 [History] Lactulose 15 ml PO DAILY PRN 05/21/19 [History] Omeprazole 40 mg PO ACBREAKFAST 05/21/19 [History] Venlafaxine HCl [Venlafaxine ER] 75 mg PO DAILY 05/21/19 [History] Venlafaxine HCl [Venlafaxine ER] 150 mg PO DAILY 05/21/19 [History] Albuterol/Ipratropium [DuoNeb 3.0-0.5 MG/3 ML] 3 ml NEB Q4H PRN neb 05/24/19 [ Rx] Aspirin 81 mg PO DAILY tab.chew 05/24/19 [Rx] Benazepril [Lotensin] 20 mg PO DAILY tablet 05/24/19 [Rx] Mirtazapine [Remeron] 45 mg PO BEDTIME tablet 05/24/19 [Rx] Ondansetron [Ondansetron ODT] 4 mg PO Q6H PRN #30 tab.rapdis 05/24/19 [Rx] Venlafaxine [Effexor XR] 75 mg PO DAILY cap.er 05/24/19 [Rx] Venlafaxine [Effexor XR] 150 mg PO DAILY cap.er 05/24/19 [Rx] amLODIPine [Norvasc] 5 mg PO DAILY tablet 05/24/19 [Rx] atorvaSTATin [Lipitor] 80 mg PO BEDTIME tablet 05/24/19 [Rx] busPIRone [Buspar] 30 mg PO DAILY tablet 05/24/19 [Rx] hydroCHLOROthiazide [Hydrochlorothiazide] 25 mg PO DAILY tablet 05/24/19 [Rx] oxyCODONE HCl [Oxycodone HCl] 10 mg PO Q4HR PRN #35 tablet 05/24/19 [Rx] traZODone 100 mg PO BEDTIME tablet 05/24/19 [Rx] Patient Handouts: Shortness of Breath, Adult, [id number], Ondansetron tablets , Oxycodone tablets or capsules, Home Oxygen Use, Adult Forms: ED Department Discharge Referrals: PCP,None [Primary Care Provider] - - Discharge Summary/Plan Comment DC Time >30 min.: No Discharge Summary/Plan Comment: Patient discharged to care of family and children who will travel with her to [place] to see the manager relocation specialist to evaluate and manage the new mass. Patient pain managed and planned with oral medications to take on the trip down. Patient to continued f/u as directed. - Patient Data Vitals - Most Recent: Last Vital Signs Temp 36.5 C 05/25/19 04:00 Pulse 102 H 05/25/19 04:00 Resp 22 H 05/25/19 04:00 BP 163/82 H 05/25/19 06:46 Pulse Ox 90 L 05/25/19 04:00 Weight - Most Recent: 73.992 kg I&O - Last 24 hours: Intake & Output 05/24/19 05/25/19 05/25/19 22:59 06:59 14:59 Intake Total 588 1580 Output Total 600 Balance 588 980 Lab Results - Last 24 hrs: Laboratory Results - last 24 hr 05/25/19 05/25/19 Range/Units 07:10 07:10 WBC 12.4 H (4.0-11.0) K/uL RBC 4.05 (3.80-5.80) M/uL Hgb 12.1 (11.5-16.5) g/dL Hct 38.6 (37.0-47.0) % MCV 95 (76-96) fL MCH 29.9 (27.0-32.0) pg MCHC 31.3 (31.0-35.0) g/dL RDW 15.4 (11.0-16.0) % Plt Count 538 H (150-500) K/uL MPV 9.3 (6.0-10.0) fL Neut % (Auto) 78.6 H (45.0-70.0) % Lymph % (Auto) 11.6 L (20.0-40.0) % [place] % (Auto) 7.9 (3.0-10.0) % Eos % (Auto) 1.7 (1.0-5.0) % Baso % (Auto) 0.2 (0.0-0.5) % Neut # (Auto) 9.74 H (2.00-7.50) K/uL Lymph # (Auto) 1.44 L (1.50-4.00) K/uL [place] # (Auto) 0.98 H (0.20-0.80) K/uL Eos # (Auto) 0.21 (0.04-0.40) K/uL Baso # (Auto) 0.02 (0.02-0.10) K/uL Sodium 135 L (136-145) mmol/L Potassium 5.2 H (3.5-5.1) mmol/L Chloride 102 (98-107) mmol/L Carbon Dioxide 19.5 L (21.0-32.0) mmol/L Anion Gap 18.7 H (5.0-15.0) mmol/L BUN 25 (8-26) mg/dL Creatinine 1.22 H (0.55-1.02) mg/dL Est Cr Clr Drug Dosing 31.94 mL/min Estimated GFR (MDRD) 43 L (>60) MLS/MIN BUN/Creatinine Ratio 20.5 (6-25) Glucose 119 H (74-100) mg/dL Calcium 8.4 L (8.5-10.1) mg/dL Total Bilirubin 0.2 D (0.0-1.0) mg/dL AST 49 H (15-37) U/L ALT 19 (12-78) U/L Alkaline Phosphatase 114 (46-116) U/L Total Protein 6.6 (6.4-8.2) g/dL Albumin 2.4 L (3.4-5.0) g/dL Globulin 4.2 (2.2-4.2) g/dL Albumin/Globulin Ratio 0.6 L (0.8-2.0) [facility]QAS Results - Last 24 hrs: Microbiology 05/21/19 17:40 Urine Culture - Final Urine, Voided Escherichia Coli Med Orders - Current: Current Medications Discontinued Medications Albuterol/Ipratropium (Duoneb 3.0-0.5 Mg/3 Ml) 3 ml NEB Q4H PRN PRN Reason: Shortness of Breath Last Admin: 05/25/19 06:53 Dose: 3 ml Albuterol/Ipratropium (Duoneb 3.0-0.5 Mg/3 Ml) Confirm Administered Dose 3 ml .ROUTE .STK-MED ONE Stop: 05/23/19 19:57 Last Admin: 05/23/19 20:54 Dose: Not Given Amlodipine Besylate (Norvasc) 5 mg PO DAILY [facility] Last Admin: 05/25/19 06:46 Dose: 5 mg Aspirin (Aspirin) 81 mg PO DAILY [facility] Last Admin: 05/25/19 06:42 Dose: 81 mg Atorvastatin Calcium (Lipitor) 80 mg PO BEDTIME [facility] Last Admin: 05/24/19 19:48 Dose: 80 mg Benazepril HCl (Lotensin) 20 mg PO DAILY [facility] Last Admin: 05/25/19 06:45 Dose: 20 mg Buspirone HCl (Buspar) 30 mg PO DAILY [facility] Last Admin: 05/25/19 06:45 Dose: 30 mg Buspirone HCl (Buspar) Confirm Administered Dose 20 mg .ROUTE .STK-MED ONE Stop: 05/23/19 08:36 Last Admin: 05/23/19 19:00 Dose: Not Given Buspirone HCl (Buspar) Confirm Administered Dose 10 mg .ROUTE .STK-MED ONE Stop: 05/23/19 08:56 Last Admin: 05/23/19 19:00 Dose: Not Given Buspirone HCl (Buspar) Confirm Administered Dose 30 mg .ROUTE .[facility] ONE Stop: 05/24/19 07:35 Last Admin: 05/24/19 08:15 Dose: Not Given Furosemide (Lasix) 20 mg IVPUSH ONETIME ONE Stop: 05/23/19 06:07 Last Admin: 05/23/19 06:56 Dose: 20 mg Hydrochlorothiazide (Hydrochlorothiazide) 25 mg PO DAILY [facility] Last Admin: 05/25/19 06:45 Dose: 25 mg Hydromorphone HCl (Dilaudid) Confirm Administered Dose 2 mg .ROUTE .[facility] ONE Stop: 05/21/19 17:09 Last Admin: 05/21/19 18:04 Dose: Not Given Hydromorphone HCl (Dilaudid) 1 mg IVPUSH ONETIME ONE Stop: 05/21/19 16:51 Last Admin: 05/21/19 17:06 Dose: 1 mg Hydromorphone HCl (Dilaudid) 1 mg IVPUSH Q2H PRN PRN Reason: Abdominal Pain Last Admin: 05/25/19 06:38 Dose: 1 mg Hydromorphone HCl (Dilaudid) Confirm Administered Dose 2 mg .ROUTE .STK-MED ONE Stop: 05/21/19 19:34 Last Admin: 05/21/19 19:39 Dose: Not Given Hydromorphone HCl (Dilaudid) Confirm Administered Dose 2 mg .ROUTE .STK-MED ONE Stop: 05/22/19 07:00 Last Admin: 05/22/19 07:14 Dose: Not Given Hydromorphone HCl (Dilaudid) Confirm Administered Dose 2 mg .ROUTE .STK-MED ONE Stop: 05/22/19 14:24 Last Admin: 05/22/19 14:28 Dose: Not Given Hydromorphone HCl (Dilaudid) Confirm Administered Dose 2 mg .ROUTE .[facility] ONE Stop: 05/22/19 23:32 Last Admin: 05/22/19 23:39 Dose: Not Given Hydromorphone HCl (Dilaudid) Confirm Administered Dose 2 mg .ROUTE .[facility] ONE Stop: 05/23/19 10:18 Last Admin: 05/23/19 19:01 Dose: Not Given Hydromorphone HCl (Dilaudid) Confirm Administered Dose 2 mg .ROUTE .[facility] ONE Stop: 05/23/19 20:45 Last Admin: 05/23/19 20:54 Dose: Not Given Hydromorphone HCl (Dilaudid) Confirm Administered Dose 2 mg .ROUTE .[facility] ONE Stop: 05/23/19 22:33 Last Admin: 05/24/19 00:00 Dose: Not Given Hydromorphone HCl (Dilaudid) Confirm Administered Dose 2 mg .ROUTE .[facility] ONE Stop: 05/24/19 04:30 Last Admin: 05/24/19 06:32 Dose: Not Given Hydromorphone HCl (Dilaudid) Confirm Administered Dose 2 mg .ROUTE .[facility] ONE Stop: 05/24/19 08:35 Last Admin: 05/24/19 08:37 Dose: Not Given Hydromorphone HCl (Dilaudid) Confirm Administered Dose 2 mg .ROUTE .[facility] ONE Stop: 05/24/19 19:33 Last Admin: 05/24/19 20:00 Dose: Not Given Hydromorphone HCl (Dilaudid) Confirm Administered Dose 2 mg .ROUTE .[facility] ONE Stop: 05/25/19 06:26 Sodium Chloride (Normal Saline) 1,000 mls @ 500 mls/hr IV ASDIRECTED [place] Last Admin: 05/21/19 18:00 Dose: 500 mls/hr Prochlorperazine Edisylate 10 (mg/ Sodium Chloride) 52 mls @ 150 mls/hr IV ONETIME ONE Stop: 05/21/19 18:54 Last Admin: 05/21/19 19:09 Dose: 150 mls/hr Sodium Chloride (Normal Saline) 1,000 mls @ 150 mls/hr IV ASDIRECTED [facility] Last Admin: 05/22/19 07:04 Dose: 150 mls/hr Sodium Chloride (Normal Saline) 500 mls @ 500 mls/hr IV .[facility] ONE Stop: 05/22/19 10:33 Last Admin: 05/22/19 10:00 Dose: 500 mls/hr Sodium Chloride (Normal Saline) 1,000 mls @ 50 mls/hr IV ASDIRECTED [facility] Last Infusion: 05/22/19 18:55 Dose: 50 mls/hr Promethazine HCl 12.5 mg/ (Sodium Chloride) 50.5 mls @ 200 mls/hr IV Q6H PRN PRN Reason: Nausea/Vomiting Last Admin: 05/23/19 13:36 Dose: 200 mls/hr Sodium Chloride (Normal Saline) 1,000 mls @ 75 mls/hr IV ASDIRECTED [facility] Last Admin: 05/24/19 22:45 Dose: 75 mls/hr Metoclopramide HCl (Reglan) 10 mg IVPUSH ONETIME ONE Stop: 05/23/19 08:17 Last Admin: 05/23/19 08:50 Dose: 10 mg Mirtazapine (Remeron) 45 mg PO BEDTIME [facility] Last Admin: 05/24/19 21:05 Dose: 45 mg Omeprazole (Omeprazole) 40 mg PO DAILY [facility] Last Admin: 05/25/19 06:47 Dose: 40 mg Omeprazole (Omeprazole) Confirm Administered Dose 20 mg .ROUTE .STK-MED ONE Stop: 05/25/19 06:30 Ondansetron HCl (Zofran) 4 mg IVPUSH ONETIME ONE Stop: 05/21/19 16:51 Last Admin: 05/21/19 16:53 Dose: 4 mg Ondansetron HCl (Zofran) 4 mg IVPUSH Q4H PRN PRN Reason: Nausea Last Admin: 05/25/19 06:33 Dose: 4 mg Promethazine HCl (Phenergan) Confirm Administered Dose 25 mg .ROUTE .STK-MED ONE Stop: 05/23/19 13:21 Last Admin: 05/23/19 19:01 Dose: Not Given Senna/Docusate Sodium (Senna Plus) 1 tab PO BEDTIME PRN PRN Reason: Constipation Last Admin: 05/24/19 21:06 Dose: 1 tab Trazodone HCl (Trazodone) 100 mg PO BEDTIME [facility] Last Admin: 05/24/19 21:06 Dose: 100 mg Trimethoprim/Sulfamethoxazole (Septra Ds) 1 tab PO BID [facility] Last Admin: 05/25/19 06:47 Dose: 1 tab Venlafaxine HCl (Effexor Xr) 75 mg PO DAILY [facility] Venlafaxine HCl (Effexor Xr) 150 mg PO DAILY [facility] Last Admin: 05/25/19 06:45 Dose: 150 mg Venlafaxine HCl (Effexor Xr) 75 mg PO DAILY [facility] Last Admin: 05/25/19 06:49 Dose: 75 mg
== END 2019-05-25 07:17 | disposition other institution (70) | DRG 641 ==
LOC: LB.ED 16:14 → LB.MS 18:54
PROVIDERS: ADMIT Surgery; ATTEND Surgery
DX: R06.00 Dyspnea, unspecified (principal); R11.2 Nausea with vomiting, unspecified; R14.0 Abdominal distension (gaseous); R06.02 Shortness of breath; E86.0 Dehydration; C79.9 Secondary malignant neoplasm of unspecified site; C56.9 Malignant neoplasm of unspecified ovary; C78.6 Secondary malignant neoplasm of retroperitoneum and peritoneum; K56.600 Partial intestinal obstruction, unspecified as to cause; R18.8 Other ascites; C78.00 Secondary malignant neoplasm of unspecified lung; I10 Essential (primary) hypertension; F32.9 Major depressive disorder, single episode, unspecified; E78.00 Pure hypercholesterolemia, unspecified; Z96.641 Presence of right artificial hip joint; Z79.82 Long term (current) use of aspirin; Z79.899 Other long term (current) drug therapy; Z88.8 Allergy status to other drugs, medicaments and biological substances; E87.2 Acidosis; E87.70 Fluid overload, unspecified; Z51.5 Encounter for palliative care; N28.9 Disorder of kidney and ureter, unspecified
CPT/HCPCS: 36415; 71046; 74019; 80053; 81001; 81003; 83605; 85025; 87086; 87088; 87186; 96361; 96374; 96375; 99285; J1170; J2405; J7030; 99223; 99231; 99232; A9270-GY; J0780; J1940; J2550; J2765; J7040; J7050; J7620-GY

== ENCOUNTER 2019-09-27 14:07 | Emergency (ER) | payer MEDICARE ==
[2019-09-27] MEDS ORDERED: Sodium Chloride 0.9% 50 ML SDV FLUSH ONE (15:53)
[2019-09-27] MEDS ORDERED: Iopamidol 755 Mg/ML 100 ML Bottle IV SCH (16:00)
--- NOTE | 2019-09-27 16:41 | CR ---
Date of Service: 09/27/19 Clinical Data: r/o pneumonia PA AND LATERAL CHEST: Comparison is made to a prior exam dated 05/23/19. The heart size is normal. The aorta is ectatic. The lungs are hyperexpanded but clear on today's study. No pneumothorax. No pleural effusions. No evidence of acute intrathoracic disease. [id number] [facility]
--- NOTE | 2019-09-27 19:13 | ER ---
REASON FOR EMERGENCY ROOM VISIT: Shortness of breath. HISTORY: This 79-year-old woman with known metastatic ovarian cancer, comes in with shortness of breath. Over the past 7-10 days, she has had gradually increasing shortness of breath particularly on exertion. It has not been associated with any chest pain or pleuritic-type pain. She has not had any cough, jaw pain, or diaphoresis. She denies any leg pain. When she underwent a CT scan last summer for workup of her metastatic ovarian cancer, they did evidently find incidentally evidence of pulmonary emboli and for that she was placed on Eliquis. Her recent past history is relevant in that she was initially hospitalized in May with nausea, vomiting, and dehydration. 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 From that hospitalization, she was rehydrated and her nausea and vomiting resolved, and she was subsequently evaluated at the [facility] after which she underwent 3 courses of chemotherapy, which she completed without any significant complications. She does admit that she has had considerable generalized weakness since then, but nothing in that regard has precipitously changed. June was when she underwent a CT scan and was found to have pulmonary emboli as noted above. She is scheduled to have a repeat CT scan on of this week at the [facility] at which time depending on the findings, they will plan on laparotomy for tumor debulking and total abdominal hysterectomy, I presume. She is known to have a mild anemia with her last hemoglobin of 9.4 on 09/15. PAST MEDICAL HISTORY: 1. Metastatic ovarian cancer as noted above. 2. Hypertension. 3. Depression. 4. Hypercholesterolemia. 5. Right hip prosthesis. 6. Surgery for hammertoe. MEDICATIONS: Reviewed. Please see EMR. ALLERGIES: TO GABAPENTIN. REVIEW OF SYSTEMS: Pertinent positives and negatives as listed in the HPI. PHYSICAL EXAMINATION: GENERAL: She is a calm, somewhat pale-appearing woman, but does not appear to be in any acute distress. VITAL SIGNS: She is afebrile. Initially, her heart rate was 118 and then 100. When it was checked approximately 15 minutes after she was admitted, her blood pressure was 126/77, respiratory rate initially was 24 and then calmed down to 19, O2 sats remained at 100% on room air. HEENT: Her conjunctivae appear somewhat pale, otherwise unremarkable. Oropharynx is normal. NECK: Supple. No adenopathy. No JVD. CHEST: Clear to auscultation with no wheezes, rhonchi, or rales. There is good air exchange bilaterally. No pleural friction rub could be discernible. CARDIAC: Regular rate without murmur. ABDOMEN: Nondistended, soft, and nontender. I cannot palpate any masses. No hepatosplenomegaly. There is no clinically detectable ascites. EXTREMITIES: Normal pulses. No edema. No deformities. SKIN: No rashes. LABORATORY DATA: A 12-lead EKG showed no acute changes and she does have a few atrial premature contractions. CBC shows a normal white count of 5.1 x10 to 3rd and hemoglobin is stable at 9.4. Her chest x-ray does not show any active pulmonary disease and I do not see any definite effusion or infiltrate. A CMP was reviewed and is normal except for mild hypoalbuminemia of 3.2 and an anion gap which is minimally elevated at 16.7. A CT scan with contrast to rule out pulmonary embolus was obtained and it shows no evidence of pulmonary embolus. No other acute pathology was noted. There was a possibility of some atelectasis or possibly an early infiltrate at the left base, but that was not very definite. IMPRESSION: Dyspnea of uncertain etiology, improved. PLAN: She did improve definitely over the course of her time here in the emergency room. She has been here over 4 hours and her dyspnea resolved on its own. Her chest sounds clear. She has no sign of PE. Her hemoglobin is stable and clinically she has no sign of any acute pneumonia. She is scheduled to be seen at [facility]. I think we can go ahead and let her go home as [place] mile away. If any problems arise, she can certainly come back for another evaluation. All questions were answered. They understand and agree with this plan. RADHA/SANGEETA /[id number]
[2019-09-27 19:42] VITALS: BP 134/84; PULSE 89
--- NOTE | 2019-09-28 11:05 | CT ---
DATE OF SERVICE: 09/27/19 CLINICAL DATA: SOB, R/O PE ENHANCED CHEST CT: Multislice acquisition through the chest with IV contrast was performed. No priors. No evidence of PE. No pneumothorax. No pleural effusion. No aortic aneurysm or dissection. There are atelectatic changes in the dependent portion of both lungs. There are linear densities within the lingular segment of the left upper lobe and in both lung bases consistent with linear atelectasis or fibrosis. There are also subtle ground glass opacities in both lower lobes suspicious for pneumonia/ pneumonitis. The heart size is at the upper limits of normal. There are coronary artery calcifications. No significant pericardial effusion. No hilar or mediastinal adenopathy. There is compression deformity of the T12 vertebra. There is degenerative disc disease throughout the thoracic spine. No other significant findings. [id number] [facility]
== END 2019-09-27 18:25 | disposition home or self-care (01) ==
LOC: LB.ED 14:07
DX: R06.02 Shortness of breath (principal); I10 Essential (primary) hypertension
CPT/HCPCS: 36415; 71046; 71260; 80053; 85025; 93005; 99285-25

== ENCOUNTER → 2019-09-29 | Outpatient (CLI) | payer MEDICARE ==
[~2019-09-29] MED LIST: Diatrizoate Meglumine/Diatrizoate Sodium 37% 30 ML Bottle PO SCH; Iodixanol 652 MG/ML 100 ML Bottle IV SCH; Sodium Chloride 0.9% 10 ML Syringe FLUSH PRN; Sodium Chloride 0.9% 50 ML SDV FLUSH ONE
--- NOTE | 2019-10-02 15:26 | CRLCT ---
DATE OF SERVICE: 09/29/19 CLINICAL DATA: MALIGNANT NEOPLASM OF OVARY, UNSPECIFIED L ENHANCED CHEST CT: Multi slice acquisition through the chest with IV contrast was performed. Comparison is made to a prior enhanced chest CT dated 09/27/19. There are mild atelectatic changes involving the dependent portion of both lungs. The lungs are otherwise clear. No evidence of PE. No pneumothorax. No pleural effusions. No aortic aneurysm or dissection. The heart size is normal. No hilar or mediastinal adenopathy. There is degenerative disc disease throughout the thoracic spine. No lytic or blastic bone lesions. ENHANCED ABDOMEN AND PELVIC CT: Multislice acquisition through the abdomen and pelvis with IV and oral contrast was performed. No priors. The liver is normal size with homogeneous attenuation. No focal hepatic lesions. No biliary duct dilatation. The gallbladder appears normal. The spleen appears normal. The pancreas appears normal. The right adrenal appears normal. There is an 11 mm rounded low density lesion in the left adrenal. It is most likely benign. The right and left kidneys enhance symmetrically. There is a 3.9 cm sharply transcribed fluid density lesion within the upper mid pole of the left kidney consistent in appearance with a benign renal cyst. The kidneys otherwise appear normal. No hydronephrosis or hydroureter. The patient is status post right hip arthroplasty. This does produce significant beam hardening and streak artifact obscuring adjacent structures within the pelvis. There is a small amount of fluid within the bladder. It appears grossly normal. There is a moderate amount of stool noted within the descending and sigmoid colon. There is asymmetric mural thickening within the distal sigmoid colon. Direct visualization is recommended to exclude an infiltrating process. No free air. No free fluid. No dilated loops of bowel. No adenopathy. No aortic aneurysm or dissection. There is degenerative disc disease throughout the lower thoracic and lumbar spine. There is mild compression deformity of the superior end plate of T12, age indeterminate. No lytic or blastic bones lesions. No other significant findings. [id number] [facility]
== END ==
LOC: LB.CT 13:56
PROVIDERS: ATTEND Nurse Practitioner
DX: C56.9 Malignant neoplasm of unspecified ovary (principal); E27.8 Other specified disorders of adrenal gland; N28.89 Other specified disorders of kidney and ureter; K63.89 Other specified diseases of intestine; M51.36 Other intervertebral disc degeneration, lumbar region; M51.34 Other intervertebral disc degeneration, thoracic region; G95.29 Other cord compression; Z96.641 Presence of right artificial hip joint
CPT/HCPCS: 36415; 71260; 74177; 82565; Q9963